=== PATIENT | male | born 1945 | race Caucasian/White ===

== ENCOUNTER → 2021-10-14 14:07 | Outpatient (BNVA) | payer MEDICARE, MEDICAID, SELFPAY | PROVIDERS: Visit Provider Family Medicine | DX: R79.9 Abnormal finding of blood chemistry, unspecified (principal) | CPT/HCPCS: 80053; 85025 ==

== ENCOUNTER 2021-12-27 11:40 | Outpatient (CLI) | payer MEDICARE, MEDICAID, SELFPAY ==
[2021-12-27 12:47] LABS: Basophils # 0.1 10^3/uL (0.0-0.1); Basophils % 0.8 %; Eosinophils # 0.6 10^3/uL (0.0-0.8); Eosinophils % 7.4 %; Hematocrit 26.5 % (42.0-52.0); Lymphocytes # 1.5 10^3/uL (0.8-4.8); Lymphocytes % 17.9 %; Mean Corpuscular HGB Conc 30.2 g/dL (30.0-36.0); Mean Corpuscular Volume 99.3 fl (80-94); Mean Platelet Volume 9.6 fL (7.4-10.4); Monocytes # 0.6 10^3/uL (0.2-0.9); Monocytes % 7.4 %; Neutrophils # 5.59 10^3/uL (1.8-7.7); Nucleated Red Blood Cells % 0 %; Platelet Count 251 10^3/cmm (130-400); Red Blood Count 2.67 10^6/uL (4.1-5.3); Red Cell Distribution Width 12.9 % (12.1-15.1); White Blood Count 8.5 10^3/uL (4.0-10.0)
[2021-12-27 13:02] LABS: Alanine Aminotransferase 9 U/L (0-41); Albumin Level 4.1 g/dL (3.5-5.2); Alkaline Phosphatase 58 U/L (40-130); Anion Gap 16.2 (5-19); Aspartate Amino Transferase 10 U/L (0-40); Calcium 9.2 mg/dL (8.5-10.5); Carbon Dioxide 22 mmol/L (22-29); Chloride 104 mmol/L (98-107); Globulin 2.9 g/dL (1.3-4.6); Glucose 107 mg/dL (65-115); Osmolality Calculated 313 mOsm/kg (285-295); Potassium 5.2 mmol/L (3.5-5.1); Sodium 137 mmol/L (136-145); Total Bilirubin 0.2 mg/dL (0.15-1.2)
[2021-12-27 13:13] LABS: Blood Urea Nitrogen 93 mg/dL (8-23)
== END 2021-12-27 11:41 | disposition home or self-care (01) ==
LOC: LAB 11:41
PROVIDERS: Visit Provider Family Medicine
DX: E11.22 Type 2 diabetes mellitus with diabetic chronic kidney disease (principal); N18.30 Chronic kidney disease, stage 3 unspecified; D63.1 Anemia in chronic kidney disease
CPT/HCPCS: 80053; 85025

== ENCOUNTER 2022-01-22 09:22 | Emergency (ER) | payer MEDICARE, MEDICAID, SELFPAY ==
[2022-01-22 09:32] VITALS: BP 171/64; PULSE 65; RESP 16; TEMP 36.5; O2SAT 99
--- NOTE | 2022-01-22 09:35 | PC.PHAR ---
PT IS FROM [facility] [place]-ANGEL ZAMUDIO FROM [facility] [place] WILL FAX MAR AND TAR
--- NOTE | 2022-01-22 09:39 | W.ED.RECABL ---
HPI - Recheck/Abnormal Lab/Rx General: Chief Complaint: Recheck/Abnormal Lab/Rx Stated Complaint: Abnormal lab values Time Seen by Provider: 01/22/22 09:32 Source: patient Mode of arrival: ambulatory History of Present Illness: 76-year-old male sent from the [facility] with complaint of anemia. He is awake and alert he has end-stage renal disease. Denies chest or abdominal pain. No recent illness no cough no shortness of breath no hematochezia melena hematemesis Maik james MD complaint: abnormal lab Initial visit (ago): day(s) Associated symptoms: none Review of Systems Const: Denies: fever(s), chills, body aches, change in appetite, fatigue or malaise ENMT: Denies: throat pain, ear or mastoid pain, nasal discharge or nasal congestion Card: Denies: chest pain, edema, dyspnea on exertion or orthopnea Resp: Denies: dyspnea, productive cough or non-productive cough GI: Denies: abdominal pain, nausea, vomiting, hematemesis, coffee ground emesis, diarrhea, constipation, bloating, hematochezia or melena : Denies: flank pain, dysuria, urinary frequency or urinary urgency Skin/Breast: Denies: rash or pruritus PFSH ED PFSH: Medical History Anemia CKD (chronic kidney disease) Physical Exam Const: GENERAL APPEARANCE: cooperative and comfortable ORIENTATION/CONSCIOUSNESS: Yes awake, Yes oriented to person, Yes oriented to place and Yes oriented to time HENMT: COMMON NORMALS: normocephalic, atraumatic and hearing grossly normal bilaterally HEAD & SCALP: normocephalic and atraumatic Resp: COMMON NORMALS: normal respiratory effort, No retractions, No use of accessory muscles and clear to auscultation bilaterally AUSCULTATION: clear to auscultation bilaterally Cardio: COMMON NORMALS: regular rate, regular rhythm and No murmurs present (Cardio) RATE: regular rate RHYTHM: regular rhythm GI: COMMON NORMALS: Soft to palpation and No hepatosplenomegaly present AUSCULTATION: Yes normoactive bowel sounds PALPATION: Yes Soft to palpation, No Tenderness to palpation present (GI), No Guarding due to palpation present (GI) and Yes No hepatosplenomegaly present Extremity: COMMON NORMALS: normal to inspection, capillary refill normal, no clubbing, cyanosis or edema, no calf tenderness and no pedal edema Neuro: SENSORIUM/ORIENTATION: Yes oriented to person, Yes oriented to place and Yes oriented to time Skin: COMMON NORMALS: no rashes or lesions noted GENERAL SKIN EXAM: no rashes or lesions noted Course Vital Signs: Vital signs: Vital Signs Temperature 97.7 F 01/22/22 09:32 Pulse Rate 67 01/22/22 11:09 Respiratory Rate 16 01/22/22 11:09 Blood Pressure 171/67 01/22/22 11:09 Pulse Oximetry 98 01/22/22 11:09 MDM - Recheck/Abnormal Lab/Rx Medical Decision Making Laboratory test reviewed BUN/creatinine are elevated but are at his previous baselines. His hemoglobin is 8 his vital signs are stable there is no sign of or report of any history suggestive of active bleeding. His blood pressure is actually elevated and he is mildly bradycardic. He does not have an indication for transfusion at this time I did call and discussed with attending. He agrees and will discharge patient back to the halfway to monitor his hemoglobin there. Medical Records I reviewed the patient's medical records. Lab Data I reviewed the patient's lab results. 01/22/22 09:50 01/22/22 09:50 Laboratory Results WBC 7.6 10^3/uL (4.0-10.0) 01/22/22 09:50 RBC 2.62 10^6/uL (4.1-5.3) L 01/22/22 09:50 Hgb 8.0 g/dL (11.7-16.6) L 01/22/22 09:50 Hct 26.3 % (42.0-52.0) L 01/22/22 09:50 MCV 100.4 fl (80-94) H 01/22/22 09:50 MCH 30.5 pg (28.0-34.0) 01/22/22 09:50 MCHC 30.4 g/dL (30.0-36.0) 01/22/22 09:50 RDW 12.4 % (12.1-15.1) 01/22/22 09:50 Plt Count 207 10^3/cmm (130-400) 01/22/22 09:50 MPV 9.5 fL (7.4-10.4) 01/22/22 09:50 Neut % (Auto) 66.0 % 01/22/22 09:50 Lymph % (Auto) 16.3 % 01/22/22 09:50 [place] % (Auto) 7.8 % 01/22/22 09:50 Eos % (Auto) 8.7 % 01/22/22 09:50 Baso % (Auto) 0.8 % 01/22/22 09:50 Neut # (Auto) 5.01 10^3/uL (1.8-7.7) 01/22/22 09:50 Lymph # (Auto) 1.2 10^3/uL (0.8-4.8) 01/22/22 09:50 [place] # (Auto) 0.6 10^3/uL (0.2-0.9) 01/22/22 09:50 Eos # (Auto) 0.7 10^3/uL (0.0-0.8) 01/22/22 09:50 Baso # (Auto) 0.1 10^3/uL (0.0-0.1) 01/22/22 09:50 Nucleated RBC % (auto) 0 % 01/22/22 09:50 Nucleated RBCs # 0.0 /100WBC 01/22/22 09:50 Sodium 139 mmol/L (136-145) 01/22/22 09:50 Potassium 4.4 mmol/L (3.5-5.1) 01/22/22 09:50 Chloride 102 mmol/L (98-107) 01/22/22 09:50 Carbon Dioxide 25 mmol/L (22-29) 01/22/22 09:50 Anion Gap 16.4 (5-19) 01/22/22 09:50 BUN 92 mg/dL (8-23) H* 01/22/22 09:50 Creatinine 3.9 mg/dL (0.7-1.2) H 01/22/22 09:50 GFR Calculation Not Reportable 01/22/22 09:50 Glucose 126 mg/dL (65-115) H 01/22/22 09:50 Calculated Osmolality 318 mOsm/kg (285-295) H 01/22/22 09:50 Calcium 9.3 mg/dL (8.5-10.5) 01/22/22 09:50 Total Bilirubin 0.2 mg/dL (0.15-1.2) 01/22/22 09:50 AST 11 U/L (0-40) 01/22/22 09:50 ALT 10 U/L (0-41) 01/22/22 09:50 Alkaline Phosphatase 57 U/L (40-130) 01/22/22 09:50 Total Protein 7.2 g/dL (6.6-8.7) 01/22/22 09:50 Albumin 3.7 g/dL (3.5-5.2) 01/22/22 09:50 Globulin 3.5 g/dL (1.3-4.6) 01/22/22 09:50 Blood Type O Positive 01/22/22 09:50 Rho(D) Type Positive 01/22/22 09:50 Antibody Screen Negative 01/22/22 09:50 Discharge Plan Discharge Patient Disposition: Home Clinical Impression: Anemia, CKD (chronic kidney disease) Condition: Stable Prescriptions: No Action Prozac 40 mg Capsule 40 mg PO DAILY Lasix 40 mg Tablet 40 mg PO DAILY@16 Zyrtec 10 mg Tablet 10 mg PO DAILY Plavix 75 mg Tablet 75 mg PO DAILY amlodipine 5 mg Tablet 5 mg PO DAILY Pepcid 20 mg Tablet 20 mg PO EVERY OTHER DAY trazodone 100 mg Tablet 100 mg PO BEDTIME hydrocortisone 1 % Cream 1 applic topical Q8H PRN (Reason: Itching) Vitamin D3 25 mcg (1,000 unit) Tablet 25 mcg PO DAILY Lantus Solostar U-100 Insulin 100 unit/mL (3 mL) Insulin Pen 15 unit SUBCUT DAILY Biofreeze (menthol) 4 % Gel 1 applic TOPICAL TID PRN (Reason: KNEE PAIN) Trelegy Ellipta 100-62.5-25 mcg Blister With Device 1 inh INHALATION DAILY Miralax 17 gram Powder In Packet 17 g PO BID isosorbide dinitrate 20 mg Tablet 10 mg PO BID@08,18 ferrous sulfate 325 mg (65 mg iron) Tablet 325 mg PO TID calcium carbonate 500 mg calcium (1,250 mg) Tablet,Chewable 500 mg PO AC Rx Instructions: @06:30,11:30,16:30 Refresh Liquigel 1 % Drops, Liquid Gel 1 drp OPHTHALMIC (EYE) BID@08,20 hydralazine 50 mg Tablet 50 mg PO TID@08,13,20 insulin lispro [Humalog U-100 Insulin] 100 unit/mL solution See Rx Instructions .ROUTE .COMPLEX Rx Instructions: sliding scale before meals and bedtime @0730,12:30,17:30,20:00 albuterol sulfate 90 mcg/actuation Hfa Aerosol Inhaler 2 puff INHALATION Q6H PRN (Reason: Shortness Of Breath) bisacodyl 10 mg Suppository 10 mg OK DAILY PRN (Reason: Constipation) Antacid 200-200-20 mg/5 mL Suspension 30 ml PO Q4H PRN (Reason: Heartburn) bisacodyl 5 mg Tablet 20 mg PO Q24H PRN (Reason: Constipation) ipratropium-albuterol 0.5 mg-3 mg(2.5 mg base)/3 mL Solution For Nebulization 3 ml INHALATION Q4H PRN (Reason: Shortness Of Breath) Milk of Magnesia 400 mg/5 mL Suspension 30 ml PO Q24H PRN (Reason: Constipation) Hxkzl-[id number]-Tfa Enema 19-7 gram/118 mL Enema 118 ml OK DAILY PRN (Reason: Constipation) Tylenol 325 mg Tablet 650 mg PO Q4H PRN (Reason: Pain/temp) Nitrostat 0.4 mg Tablet, Sublingual 0.4 mg SUBLINGUAL Q5M PRN (Reason: Chest Pain) Rx Instructions: do not exceed 3 doses per episode Discharge Orders: Discharge ED (Routine); Ordered 01/28/22 Ordered By: Mani Green Patient Instructions: Opioid Safety, Pain Management Coding Level of Care Code ED Back Line Cook for Chg Fwd Exam Detailed
[2022-01-22 10:01] LABS: Basophils # 0.1 10^3/uL (0.0-0.1); Basophils % 0.8 %; Eosinophils # 0.7 10^3/uL (0.0-0.8); Eosinophils % 8.7 %; Hematocrit 26.3 % (42.0-52.0); Lymphocytes # 1.2 10^3/uL (0.8-4.8); Lymphocytes % 16.3 %; Mean Corpuscular HGB Conc 30.4 g/dL (30.0-36.0); Mean Corpuscular Hemoglobin 30.5 pg (28.0-34.0); Mean Corpuscular Volume 100.4 fl (80-94); Mean Platelet Volume 9.5 fL (7.4-10.4); Monocytes # 0.6 10^3/uL (0.2-0.9); Monocytes % 7.8 %; Neutrophils # 5.01 10^3/uL (1.8-7.7); Nucleated Red Blood Cells % 0 %; Platelet Count 207 10^3/cmm (130-400); Red Blood Count 2.62 10^6/uL (4.1-5.3); Red Cell Distribution Width 12.4 % (12.1-15.1); White Blood Count 7.6 10^3/uL (4.0-10.0)
[2022-01-22 10:26] LABS: Alanine Aminotransferase 10 U/L (0-41); Albumin Level 3.7 g/dL (3.5-5.2); Alkaline Phosphatase 57 U/L (40-130); Anion Gap 16.4 (5-19); Aspartate Amino Transferase 11 U/L (0-40); Calcium 9.3 mg/dL (8.5-10.5); Carbon Dioxide 25 mmol/L (22-29); Chloride 102 mmol/L (98-107); Globulin 3.5 g/dL (1.3-4.6); Glucose 126 mg/dL (65-115); Osmolality Calculated 318 mOsm/kg (285-295); Potassium 4.4 mmol/L (3.5-5.1); Sodium 139 mmol/L (136-145); Total Bilirubin 0.2 mg/dL (0.15-1.2); Total Protein 7.2 g/dL (6.6-8.7)
[2022-01-22 10:28] LABS: Blood Urea Nitrogen 92 mg/dL (8-23)
[2022-01-22 11:09] VITALS: BP 171/67; PULSE 67; RESP 16; O2SAT 98
--- NOTE | 2022-01-22 11:16 | PC.NURSE ---
REPORT CALLED TO CHRISTIAN PRADO AT [facility].
== END 2022-01-22 11:39 | disposition home or self-care (01) ==
PROVIDERS: Emergency Provider Family Medicine
DX: D64.9 Anemia, unspecified (principal); N18.9 Chronic kidney disease, unspecified; Z79.02 Long term (current) use of antithrombotics/antiplatelets; Z79.4 Long term (current) use of insulin
CPT/HCPCS: 80053; 85025; 86850; 86900; 99283

== ENCOUNTER → 2022-01-27 16:39 | Outpatient (BNVA) | payer MEDICARE, MEDICAID, SELFPAY | PROVIDERS: Visit Provider Nurse Practitioner Family | DX: R71.0 Precipitous drop in hematocrit (principal) | CPT/HCPCS: 85025 ==

== ENCOUNTER → 2022-03-12 13:36 | Outpatient (BNVA) | payer MEDICARE, MEDICAID, SELFPAY | PROVIDERS: Visit Provider Nurse Practitioner Family | DX: N18.9 Chronic kidney disease, unspecified (principal) | CPT/HCPCS: 80053; 85025 ==

== ENCOUNTER → 2022-12-21 15:52 | Outpatient (BNVA) | payer MEDICARE, MEDICAID, SELFPAY | PROVIDERS: PCP Nurse Practitioner Family; Visit Provider Nurse Practitioner Family | DX: N18.9 Chronic kidney disease, unspecified (principal) | CPT/HCPCS: 81000 ==